=== PATIENT | female | born 1990 | race Caucasian/White ===

== ENCOUNTER 2019-11-18 13:44 | Emergency (ER) | payer SELFPAY ==
[2019-11-18] MEDS ORDERED: NORMAL SALINE 1000 ML 1,000 ML IV ONE (14:15)
[2019-11-18 15:16] VITALS: BP 96/63
[2019-11-18 17:41] LABS: ABSOLUTE BASOPHILS # (AUTO) 0.1 10^3/uL (0.0-0.2); ABSOLUTE EOSINOPHILS # (AUTO) 0.3 10^3/uL (0.0-0.6); ABSOLUTE LYMPHOCYTES (AUTO) 2.5 10^3/uL (0.5-4.7); ABSOLUTE MONOCYTES (AUTO) 0.5 10^3/uL (0.1-1.4); ABSOLUTE NEUT (AUTO) 6.6 10^3/uL (1.7-8.2); BASOPHILS % (AUTO) 0.9 % (0-2); EOSINOPHILS % (AUTO) 3.2 % (0-6); HEMATOCRIT 44.1 % (36.0-47.0); HEMOGLOBIN 14.8 g/dL (12.0-15.5); LYMPHOCYTES % (AUTO) 25.1 % (13-45); MEAN CORPUSCULAR HEMOGLOBIN 28.9 pg (27.0-33.4); MEAN CORPUSCULAR HGB CONC 33.6 g/dL (32.0-36.0); MEAN CORPUSCULAR VOLUME 86 fl (80-97); MONOCYTES % (AUTO) 4.9 % (3-13); PLATELET COUNT 257 10^3/uL (150-450); RED BLOOD COUNT 5.13 10^6/uL (3.72-5.28); RED CELL DISTRIBUTION WIDTH 14.6 % (11.5-14.0); SEGMENTED NEUTROPHILS % (AUTO) 65.9 % (42-78); TOTAL CELLS COUNTED % (AUTO) 100 %
--- NOTE | 2019-11-18 17:47 | ER Document Report ---
ED GI/ - General Chief Complaint: Nausea/Vomiting Stated Complaint: NAUSEA/VOMITING Time Seen by Provider: 11/18/19 15:34 Mode of Arrival: Ambulatory Information source: Patient Notes: This 29-year-old female presented emergency room today with nausea vomiting malaise over the last 48 hours. - HPI Patient complains to provider of: Vomiting Timing/Duration: Waxing and waning - Related Data Allergies/Adverse Reactions: No Known Allergies Allergy (Unverified 11/18/19 16:02) Past Medical History - General Information source: Patient - Social History Smoking Status: Current Every Day Smoker Frequency of alcohol use: None Drug Abuse: None Family History: None Patient has homicidal ideation: No Review of Systems - Review of Systems Constitutional: No symptoms reported EENT: No symptoms reported Cardiovascular: No symptoms reported Respiratory: No symptoms reported Gastrointestinal: Vomiting Genitourinary: No symptoms reported Female Genitourinary: No symptoms reported Musculoskeletal: No symptoms reported Skin: No symptoms reported Hematologic/Lymphatic: No symptoms reported Neurological/Psychological: No symptoms reported Physical Exam - Vital signs Vitals: Temp 98.5 F 11/18/19 15:00 Interpretation: Normal - General General appearance: Appears well, Alert - HEENT Head: Normocephalic, Atraumatic Eyes: Normal Pupils: PERRL - Respiratory Respiratory status: No respiratory distress Chest status: Nontender Breath sounds: Normal Chest palpation: Normal - Cardiovascular Rhythm: Regular Heart sounds: Normal auscultation Murmur: No - Abdominal Inspection: Normal Distension: No distension Bowel sounds: Normal Tenderness: Nontender Organomegaly: No organomegaly - Back Back: Normal, Nontender - Extremities General upper extremity: Normal inspection, Nontender, Normal color, Normal ROM, Normal temperature General lower extremity: Normal inspection, Nontender, Normal color, Normal ROM, Normal temperature, Normal weight bearing. No: Natalia's sign - Neurological Neuro grossly intact: Yes Cognition: Normal Orientation: AAOx4 Rain Coma Scale Eye Opening: Spontaneous [place] Coma Scale Verbal: Oriented Rain Coma Scale Motor: Obeys Commands [place] Coma Scale Total: 15 Speech: Normal Motor strength normal: LUE, RUE, LLE, RLE Sensory: Normal - Psychological Associated symptoms: Normal affect, Normal mood - Skin Skin Temperature: Warm Skin Moisture: Dry Skin Color: Normal Course - Re-evaluation Re-evalutation: 07/19/20 18:51 Patient resting comfortably in the room no noted abdominal pain bowel sounds normoactive no emesis here no diarrhea. - Vital Signs Vital signs: Temp Pulse Resp BP Pulse Ox 98.5 F 89 19 96/63 L 97 11/18/19 15:14 11/18/19 15:14 11/18/19 15:14 11/18/19 15:14 11/18/19 15:14 - Laboratory Result Diagrams: 11/18/19 17:33 11/18/19 17:33 Laboratory results interpreted by me: 11/18/19 11/18/19 17:33 17:33 RDW 14.6 H Sodium 136.8 L Potassium 3.4 L BUN 6 L Labs- All tests 24 hr 11/18/19 11/18/19 17:33 17:33 WBC 10.0 RBC 5.13 Hgb 14.8 Hct 44.1 MCV 86 MCH 28.9 MCHC 33.6 RDW 14.6 H Plt Count 257 Lymph % (Auto) 25.1 [place] % (Auto) 4.9 Eos % (Auto) 3.2 Baso % (Auto) 0.9 Absolute Neuts (auto) 6.6 Absolute Lymphs (auto) 2.5 Absolute Monos (auto) 0.5 Absolute Eos (auto) 0.3 Absolute Basos (auto) 0.1 Seg Neutrophils % 65.9 Sodium 136.8 L Potassium 3.4 L Chloride 104 Carbon Dioxide 25 Anion Gap 8 BUN 6 L Creatinine 0.52 Est GFR ( Amer) > 60 Est GFR (MDRD) Non-Af > 60 Glucose 87 Calcium 9.2 Total Bilirubin 0.6 Direct Bilirubin 0.1 Neonat Total Bilirubin Not Reportable Neonat Direct Bilirubin Not Reportable Neonat Indirect Bili Not Reportable AST 27 ALT 17 Alkaline Phosphatase 41 Total Protein 7.6 Albumin 4.3 Discharge - Discharge Clinical Impression: Viral illness Condition: Good Disposition: HOME, SELF-CARE Instructions: Fever ([facility]), Viral Syndrome ([facility]) Additional Instructions: To help with spread of COVID-19, everyone should: Clean your hands often, either with soap and water for 20 seconds or hand boat worker that contains at least 60% alcohol. Avoid close contact with people who are sick. Put distance between yourself and other people at least 6 feet. Cover your mouth and nose with a clean base cover when around others. Cover your cough or sneeze with the tissue then through the tissue in the trash. Clean and disinfect frequently touched objects and surfaces daily. CDC recommends that people wear a clock face coverings in public settings and when around people outside of their household, especially when other social dis tancing measures are difficult to maintain. Clock face coverings may help prevent people who have COVID-19 from spreading the virus to others. Specifically you have been tested however your results are not back yet he should self quarantine following all the appropriate protocols remaining isolated as much as possible. Follow-up with PMD in 3 to 4 days.
[2019-11-18 17:59] LABS: ALBUMIN 4.3 g/dL (3.5-5.0); ALKALINE PHOSPHATASE 41 U/L (38-126); ANION GAP 8 (5-19); ASPARTATE AMINO TRANSFERASE 27 U/L (14-36); BILIRUBIN,DIRECT 0.1 mg/dL (0.0-0.4); BILIRUBIN,TOTAL 0.6 mg/dL (0.2-1.3); BLOOD UREA NITROGEN 6 mg/dL (7-20); CALCIUM 9.2 mg/dL (8.4-10.2); CARBON DIOXIDE 25 mmol/L (22-30); CHLORIDE 104 mmol/L (98-107); GLUCOSE 87 mg/dL (75-110); POTASSIUM 3.4 mmol/L (3.6-5.0); TOTAL PROTEIN 7.6 g/dL (6.3-8.2)
[2019-11-18 19:09] LABS: APPEARANCE,URINE CLOUDY; BILIRUBIN,URINE SMALL (NEGATIVE); COLOR,URINE AMBER; GLUCOSE, URINE NEGATIVE (NEGATIVE); KETONES,URINE 80 mg/dL (NEGATIVE); LEUKOCYTE ESTERASE,URINE MODERATE (NEGATIVE); NITRITE,URINE NEGATIVE (NEGATIVE); PROTEIN,URINE 30 mg/dL (NEGATIVE); URINE SPECIFIC GRAVITY 1.027
== END 2019-11-18 19:23 | disposition home or self-care (01) ==
LOC: ER 13:44
DX: B34.9 Viral infection, unspecified (principal); R11.2 Nausea with vomiting, unspecified; R53.81 Other malaise; F17.200 Nicotine dependence, unspecified, uncomplicated; Z20.828 Contact with and (suspected) exposure to other viral communicable diseases
CPT/HCPCS: 99283; 96360; 36415; 85025; 87635; 80053; 81001; J7030; C9803

== ENCOUNTER 2019-12-19 15:12 | Emergency (ER) | payer SELFPAY ==
[2019-12-19 15:46] VITALS: BP 92/54
--- NOTE | 2019-12-19 17:36 | ER Document Report ---
ED Medical Screen (RME) - General Chief Complaint: Arm Pain Stated Complaint: ARM PAIN Time Seen by Provider: 12/19/19 17:29 Mode of Arrival: Ambulatory Information source: Patient Notes: HPI; 29-year-old female presents to the emergency room complaining of bilateral arm swelling and numbness for the past 2 weeks. States she is waking up in the middle of the night and noticing that her arms are numb and swollen. Persist throughout the day. Does have a history of degenerative disc disease of the neck. She denies any trauma or injury to her neck. Also complaining of intermittent right-sided chest pain for the past week. Describes it as sharp and aching. Has been taking a daily aspirin and Tylenol without relief. Did not take any aspirin today. Denies any nausea, vomiting, no shortness of breath, no difficulty breathing. PE: Alert and oriented x3. Lungs: Clear to auscultation without rales, rhonchi, wheezes. Heart: Regular rate rhythm without murmurs, rubs, gallops. Negative fast exam. Taxation Accountant strength equal and adequate bilaterally. Full sensation to bilateral upper extremities. Vascular intact. I have greeted and performed a rapid initial assessment of this patient. A comprehensive ED assessment and evaluation of the patient, analysis of test results and completion of the medical decision making process will be conducted by additional ED providers. I have specifically instructed the patient or family members with the patient to immediately return to any nursing staff should anything change in the patient's condition or with their chief complaint. TRAVEL OUTSIDE OF THE [place] IN LAST 30 DAYS: No - Related Data Allergies/Adverse Reactions: No Known Allergies Allergy (Verified 12/19/19 17:28) Physical Exam - Vital signs Vitals: Temp Pulse Resp BP Pulse Ox 98.1 F 70 17 92/54 L 95 12/19/19 15:44 12/19/19 15:44 12/19/19 15:44 12/19/19 15:44 12/19/19 15:44 Course - Vital Signs Vital signs: Temp Pulse Resp BP Pulse Ox 98.1 F 70 17 92/54 L 95 12/19/19 15:44 12/19/19 15:44 12/19/19 15:44 12/19/19 15:44 12/19/19 15:44
--- NOTE | 2019-12-19 18:13 | RADIOLOGY REPORT (SQ) ---
EXAM DESCRIPTION: CHEST 2 VIEWS IMAGES COMPLETED DATE/TIME: 12/19/2019 6:00 pm REASON FOR STUDY: chest pain COMPARISON: None. EXAM PARAMETERS: NUMBER OF VIEWS: two views TECHNIQUE: Digital Frontal and Lateral radiographic views of the chest acquired. RADIATION DOSE: NA LIMITATIONS: none FINDINGS: LUNGS AND PLEURA: No opacities, masses or pneumothorax. No pleural effusion. MEDIASTINUM AND HILAR STRUCTURES: No masses or contour abnormalities. HEART AND VASCULAR STRUCTURES: Heart normal size. No evidence for failure. BONES: No acute findings. HARDWARE: None in the chest. OTHER: No other significant finding. IMPRESSION: NO ACUTE RADIOGRAPHIC FINDING IN THE CHEST. TECHNICAL DOCUMENTATION: JOB ID: [id number] 2010 [employer]- All Rights Reserved Reading location - IP/workstation name: [email or web address]
--- NOTE | 2019-12-19 18:32 | RADIOLOGY REPORT (SQ) ---
EXAM DESCRIPTION: CT CERVICAL SPINE WITHOUT IMAGES COMPLETED DATE/TIME: 12/19/2019 6:02 pm REASON FOR STUDY: Paresthesia COMPARISON: None. TECHNIQUE: Axial images acquired through the cervical spine without intravenous contrast. Images re viewed with lung, soft tissue and bone windows. Reconstructed coronal and sagittal MPR images review ed. Images stored on PACS. All CT scanners at this facility use dose modulation, iterative reconstruction, and/or weight based d osing when appropriate to reduce radiation dose to as low as reasonably achievable (ALARA). [facility]: Dose Right [facility]: CareDose [facility]: Dose Right [facility]: Teradose 4D [facility]: Smart [employer] RADIATION DOSE: CT Rad equipment meets quality standard of care and radiation dose reduction techniq ues were employed. CTDIvol: 19.3 mGy. DLP: 382 mGy-cm. mGy. LIMITATIONS: None. FINDINGS: ALIGNMENT: Anatomic. MINERALIZATION: Normal. VERTEBRAL BODIES: No fractures or dislocation. DISCS: No significant disc disease. FACETS, LATERAL MASSES, POSTERIOR ELEMENTS: No fractures. No dislocation. No acute findings. HARDWARE: None in the spine. VISUALIZED RIBS: No fractures. LUNG APICES AND SOFT TISSUES: No significant or acute findings. OTHER: No other significant finding. IMPRESSION: NO ACUTE OR SIGNIFICANT FINDINGS IN THE CERVICAL SPINE. TECHNICAL DOCUMENTATION: JOB ID: [id number] Quality ID # [id number]: Final reports with documentation of one or more dose reduction techniques (e.g., Au tomated exposure control, adjustment of the mA and/or kV according to patient size, use of iterative reconstruction technique) 2010 [employer]- All Rights Reserved Reading location - IP/workstation name: [email or web address]
[2019-12-19 18:51] LABS: ABSOLUTE EOSINOPHILS # (AUTO) 0.6 10^3/uL (0.0-0.6); ABSOLUTE LYMPHOCYTES (AUTO) 2.7 10^3/uL (0.5-4.7); ABSOLUTE MONOCYTES (AUTO) 0.4 10^3/uL (0.1-1.4); ABSOLUTE NEUT (AUTO) 3.3 10^3/uL (1.7-8.2); BASOPHILS % (AUTO) 0.4 % (0-2); EOSINOPHILS % (AUTO) 8.3 % (0-6); HEMATOCRIT 40.4 % (36.0-47.0); HEMOGLOBIN 13.4 g/dL (12.0-15.5); LYMPHOCYTES % (AUTO) 38.6 % (13-45); MEAN CORPUSCULAR HEMOGLOBIN 28.8 pg (27.0-33.4); MEAN CORPUSCULAR HGB CONC 33.3 g/dL (32.0-36.0); MEAN CORPUSCULAR VOLUME 87 fl (80-97); MONOCYTES % (AUTO) 5.3 % (3-13); PLATELET COUNT 270 10^3/uL (150-450); RED BLOOD COUNT 4.67 10^6/uL (3.72-5.28); RED CELL DISTRIBUTION WIDTH 15.5 % (11.5-14.0); SEGMENTED NEUTROPHILS % (AUTO) 47.4 % (42-78); TOTAL CELLS COUNTED % (AUTO) 100 %; WHITE BLOOD COUNT 6.9 10^3/uL (4.0-10.5)
[2019-12-19 19:07] LABS: ALBUMIN 4.2 g/dL (3.5-5.0); ALKALINE PHOSPHATASE 34 U/L (38-126); ANION GAP 6 (5-19); ASPARTATE AMINO TRANSFERASE 22 U/L (14-36); BILIRUBIN,TOTAL 0.4 mg/dL (0.2-1.3); BLOOD UREA NITROGEN 11 mg/dL (7-20); CALCIUM 9.2 mg/dL (8.4-10.2); CARBON DIOXIDE 29 mmol/L (22-30); CHLORIDE 104 mmol/L (98-107); CREATINE KINASE 56 U/L (30-135); GLUCOSE 94 mg/dL (75-110); POTASSIUM 4.1 mmol/L (3.6-5.0); TOTAL PROTEIN 7.1 g/dL (6.3-8.2)
[2019-12-19 19:21] LABS: TROPONIN I < 0.012 ng/mL
--- NOTE | 2019-12-19 19:54 | RADIOLOGY REPORT (SQ) ---
EXAM DESCRIPTION: CT CHEST WITHOUT IMAGES COMPLETED DATE/TIME: 12/19/2019 7:27 pm REASON FOR STUDY: pain/cough COMPARISON: None. TECHNIQUE: CT scan performed of the chest without intravenous contrast. Images reviewed with lung, soft tissue and bone windows. Reconstructed coronal and sagittal MPR images reviewed. All images st ored on PACS. All CT scanners at this facility use dose modulation, iterative reconstruction, and/or weight based d osing when appropriate to reduce radiation dose to as low as reasonably achievable (ALARA). [facility]: Dose Right [facility]: CareDose [facility]: Dose Right [facility]: Teradose 4D [facility]: Smart [employer] RADIATION DOSE: CT Rad equipment meets quality standard of care and radiation dose reduction techniq ues were employed. CTDIvol: 6.8 mGy. DLP: 242 mGy-cm. mGy. LIMITATIONS: No technical limitations. FINDINGS: LUNGS AND PLEURA: No masses, infiltrates, or pneumothorax. No pleural effusions or pleura l calcifications. HILAR AND MEDIASTINAL STRUCTURES: No identified masses or abnormal nodes. No obvious aneurysm. HEART AND VASCULAR STRUCTURES: No aneurysm. No pericardial effusion. UPPER ABDOMEN: No significant findings. Limited exam. THYROID AND OTHER SOFT TISSUES: No masses. No adenopathy. BONES: No significant finding. HARDWARE: None in the chest. OTHER: No other significant findings. IMPRESSION: NO SIGNIFICANT FINDING ON NON-CONTRASTED CHEST CT. TECHNICAL DOCUMENTATION: JOB ID: [id number] Quality ID # [id number]: Final reports with documentation of one or more dose reduction techniques (e.g., Au tomated exposure control, adjustment of the mA and/or kV according to patient size, use of iterative reconstruction technique) 2010 [employer]- All Rights Reserved Reading location - IP/workstation name: [email or web address]
--- NOTE | 2019-12-19 20:34 | ER Document Report ---
ED Extremity Problem, Upper - General Chief Complaint: Swelling Stated Complaint: ARM PAIN Time Seen by Provider: 12/19/19 17:29 Primary Care Provider: [facility] [Provider Group] - Follow up in 3-5 days MARYCHUY BUTT MD [COMMUNITY BASED STAFF] - Follow up in 3-5 days Mode of Arrival: Ambulatory Information source: Patient TRAVEL OUTSIDE OF THE [place] IN LAST 30 DAYS: No - HPI Notes: Patient states she has bilateral upper extremity swelling and pain and then this is been going on for 2 weeks. She states it only happens when she sleeps and that it makes it hard for her to sleep. It is worse with sleeping and better when she is not sleeping. The pain radiates up both arms. She has had no significant shortness of breath. Some upper chest pain. No known trauma or falls. No rashes. She states she gets both [id number]-[id number] in both arms as well as sharp pain in both arms. She states the pain is severe. She denies any current symptoms. No nausea vomiting diarrhea. Of note the nursing note that states patient was placed in room 33 is an incorrect note and everything about that nursing note must of been meant for another patient because those are none of the symptoms this patient had either. - Related Data Allergies/Adverse Reactions: No Known Allergies Allergy (Verified 12/19/19 17:28) Past Medical History - General Information source: Patient - Social History Smoking Status: Current Every Day Smoker Chew tobacco use (# tins/day): No Frequency of alcohol use: None Drug Abuse: None Family History: None Patient has homicidal ideation: No Review of Systems - Review of Systems Constitutional: denies: Chills, Fever Respiratory: denies: Cough, Short of breath Gastrointestinal: denies: Diarrhea, Vomiting -: Yes All other systems reviewed and negative Physical Exam - Vital signs Vitals: Temp Pulse Resp BP Pulse Ox 98.1 F 70 17 92/54 L 95 12/19/19 15:44 12/19/19 15:44 12/19/19 15:44 12/19/19 15:44 12/19/19 15:44 Interpretation: Normal, Other - Blood pressure is normal although borderline low. However patient had a very similar blood pressure 1 month ago. Patient is not lightheaded or dizzy. Patient is not tachycardic. This appears to be a normal blood pressure for this patient. - General General appearance: Appears well, Alert - HEENT Head: Normocephalic, Atraumatic Eyes: Normal Pupils: PERRL - Respiratory Respiratory status: No respiratory distress Chest status: Nontender Breath sounds: Normal Chest palpation: Normal - Cardiovascular Rhythm: Regular Heart sounds: Normal auscultation Murmur: No - Abdominal Inspection: Normal Distension: No distension Bowel sounds: Normal Tenderness: Nontender Organomegaly: No organomegaly - Back Back: Normal, Nontender - Extremities General upper extremity: Normal inspection, Nontender, Normal color, Normal ROM, Normal temperature, Other - Patient's bilateral upper extremity exam is unremarkable. She has normal radial pulses bilaterally she has good color and temperature. She has no evidence of swelling of either upper extremity. General lower extremity: Normal inspection, Nontender, Normal color, Normal ROM, Normal temperature, Normal weight bearing. No: Natalia's sign - Neurological Neuro grossly intact: Yes Cognition: Normal Orientation: AAOx4 Rain Coma Scale Eye Opening: Spontaneous [place] Coma Scale Verbal: Oriented [place] Coma Scale Motor: Obeys Commands Rain Coma Scale Total: 15 Speech: Normal Motor strength normal: LUE, RUE, LLE, RLE Sensory: Normal - Psychological Associated symptoms: Normal affect, Normal mood - Skin Skin Temperature: Warm Skin Moisture: Dry Skin Color: Normal Course - Vital Signs Vital signs: Temp Pulse Resp BP Pulse Ox 98.1 F 70 17 92/54 L 95 12/19/19 15:44 12/19/19 15:44 12/19/19 15:44 12/19/19 15:44 12/19/19 15:44 - Laboratory Result Diagrams: 12/19/19 18:28 12/19/19 18:28 Laboratory results interpreted by me: 12/19/19 12/19/19 18:28 18:28 RDW 15.5 H Eos % (Auto) 8.3 H Alkaline Phosphatase 34 L - Diagnostic Test Radiology reviewed: Image reviewed, Reports reviewed - EKG Interpretation by Me EKG shows normal: Sinus rhythm Rate: Normal - 63 Rhythm: NSR [place]/QRS: Left axis deviation Discharge - Discharge Clinical Impression: Bilateral arm pain Condition: Stable Disposition: HOME, SELF-CARE Instructions: Arm Pain, Nonspecific ([facility]) Additional Instructions: Please call Dr. Fermin, the [facility] or a primary care doctor as soon as possible to arrange follow-up Prescriptions: Tramadol HCl [Ultram] 50 mg PO Q6 PRN 3 Days #12 tablet PRN Reason: Forms: Return to Work Referrals: [facility] [Provider Group] - Follow up in 3-5 days MARYCHUY BUTT MD [COMMUNITY BASED STAFF] - Follow up in 3-5 days
[2019-12-19] MEDS ORDERED: HYDROCODONE/ACETAMINOPHEN 5-325 MG TABLET PO ONE (20:43)
--- NOTE | 2019-12-20 09:55 | EKG REPORT ---
SEVERITY:- OTHERWISE NORMAL ECG - SINUS ARRHYTHMIA, RATE 55-71 BORDERLINE LEFT AXIS DEVIATION : Confirmed by: Landon Julien 20-Dec-2019 09:54:10
== END 2019-12-19 21:30 | disposition home or self-care (01) ==
LOC: ER 15:12
DX: M79.601 Pain in right arm (principal); M79.602 Pain in left arm; M79.89 Other specified soft tissue disorders; R07.9 Chest pain, unspecified; F17.200 Nicotine dependence, unspecified, uncomplicated
CPT/HCPCS: 36415; 71046; 71250; 72125; 80053; 82550; 82553; 84484; 84703; 85025; 93005; 93010; 99285

== ENCOUNTER 2020-01-02 18:23 | Emergency (ER) | payer SELFPAY ==
--- NOTE | 2020-01-02 19:30 | ER Document Report ---
ED General <TI FELIX - Last Filed: 01/03/20 09:46> - General Mode of Arrival: Ambulatory Information source: Patient Cannot obtain history due to: Uncooperative TRAVEL OUTSIDE OF THE [place] IN LAST 30 DAYS: No - HPI Onset: Last week Onset/Duration: Persistent Quality of pain: No pain Severity: None Associated symptoms: Slow to respond. denies: Chest pain, Diarrhea, Headache, Nausea, Vomiting Exacerbated by: Other - Life situation Relieved by: Denies Similar symptoms previously: Yes Recently seen / treated by doctor: No <DARLINE GIBBONS - Last Filed: 01/03/20 10:16> - General Chief Complaint: Psych Problem Stated Complaint: PSYCH Notes: Patient is a 29-year-old female presenting to the emergency department with suicidal ideations. Patient states is been ongoing for the past 3 days. Patient states that it is secondary to life stressors. Patient states that she has been hospitalized in the past for similar complaint at [place]. When asked the patient is very hesitant to answer but finally answers that she does not have a specific plan for suicide. Patient denies drugs or alcohol abuse. Patient denies nausea vomiting diarrhea fevers chills cough or cold type symptoms. (DARLINE GIBBONS) - Related Data Allergies/Adverse Reactions: No Known Allergies Allergy (Verified 12/19/19 17:28) Past Medical History - General Information source: Patient - Social History Smoking Status: Current Every Day Smoker Cigarette use (# per day): Yes Chew tobacco use (# tins/day): No Smoking Education Provided: Yes Frequency of alcohol use: Rare Drug Abuse: None, Other Family History: None Patient has suicidal ideation: Yes Patient has homicidal ideation: No <DARLINE GIBBONS - Last Filed: 01/03/20 10:16> Review of Systems <DARLINE GIBBONS - Last Filed: 01/03/20 10:16> - Review of Systems Notes: REVIEW OF SYSTEMS: CONSTITUTIONAL : Denies fever, chills, or sweats. Denies recent illness. EENT: Denies eye, ear, throat, or mouth pain or symptoms. Denies nasal or sinus congestion. CARDIOVASCULAR: Denies chest pain. RESPIRATORY: Denies cough, cold, or chest congestion. Denies shortness of breath, difficulty breathing, or wheezing. GASTROINTESTINAL: Denies abdominal pain. Denies nausea, vomiting, or diarrhea. Denies constipation. GENITOURINARY: Denies difficulty urinating, painful urination, burning, frequency, or blood in urine. MUSCULOSKELETAL: Denies neck or back pain or joint pain or swelling. SKIN: Denies rash or skin lesions. HEMATOLOGIC : Denies easy bruising or bleeding. NEUROLOGICAL: Denies altered mental status or loss of consciousness. Denies headache. Denies weakness or paralysis or loss of use of either side. Denies problems with gait or speech. Denies sensory or motor loss. PSYCHIATRIC: Per HPI 10 Systems are negative unless otherwise specified above (DARLINE GIBBONS) Physical Exam <DARLINE GIBBONS - Last Filed: 01/03/20 10:16> - Vital signs Vitals: Temp Pulse Resp BP Pulse Ox 98.3 F 68 18 110/70 99 01/03/20 04:55 01/03/20 04:55 01/03/20 04:55 01/03/20 04:55 01/03/20 04:55 - Notes Notes: PHYSICAL EXAMINATION: GENERAL: Patient is a disheveled 29-year-old female presenting to the emergency department with suicidal ideations HEAD: Atraumatic, normocephalic. EYES: Pupils equal round and reactive to light, extraocular movements intact, sclera anicteric, conjunctiva are normal. ENT: nares patent, oropharynx clear without exudates. Moist mucous membranes. NECK: Normal range of motion, supple without lymphadenopathy, no appreciable JVD LUNGS: Lungs clear to auscultation bilaterally and equal. No wheezes rales or rhonchi. HEART: Regular rate and rhythm without murmurs ABDOMEN: Soft, nontender, normal bowel sounds. No guarding, no rebound. No masses appreciated. EXTREMITIES: Active full range of motion, no pitting or edema. No cyanosis. 2+ pulses x4 NEUROLOGICAL: No focal neurological deficits. Moves all extremities spo ntaneously and on command. Psychiatric: Patient does report suicidal ideations without specific plan. Patient refuses to make eye contact and is very russell with her answers. SKIN: Warm, Dry, and intact. Normal turgor, no rashes or lesions noted. (DARLINE GIBBONS) Course - Laboratory Result Diagrams: 01/02/20 21:08 01/02/20 21:08 <TI FELIX - Last Filed: 01/03/20 09:46> - Laboratory Result Diagrams: 01/02/20 21:08 01/02/20 21:08 <DARLINE GIBBONS - Last Filed: 01/03/20 10:16> - Re-evaluation Re-evalutation: 01/03/20 09:22 Patient is resting quietly in the room at this time in no distress. I did review the patient's lab work and history. Suicidal ideation without plan. Awaiting urinalysis and urine drug screen. Pending psychiatric evaluation 01/03/20 09:41 Patient has informed the nurse that she normally takes Suboxone daily we do not have that medication in the ER for the patient. Discussed with attending. Will give clonidine, Zofran for withdrawal symptoms pending psychiatric evaluation 01/03/20 09:46 Nursing is informed that the patient systolic blood pressure is 88/46. Will give IV Zofran, liter of normal saline to hold clonidine (TI FELIX) 01/03/20 10:15 Patient was medically cleared for further evaluation treatment and disposition decision as deemed necessary by mental health services. (DARLINE GIBBONS) - Vital Signs Vital signs: Temp Pulse Resp BP Pulse Ox 98.4 F 63 18 89/42 L 97 01/03/20 09:40 01/03/20 09:40 01/03/20 09:40 01/03/20 09:40 01/03/20 09:40 - Laboratory Laboratory results interpreted by me: 01/02/20 01/02/20 21:08 21:08 RDW 15.3 H Chloride 109 H Alkaline Phosphatase 33 L Total Protein 6.1 L Salicylates < 1.0 L Acetaminophen < 10 L Discharge <TI FELIX - Last Filed: 01/03/20 09:46> <DARLINE GIBBONS - Last Filed: 01/03/20 10:16> - Discharge Clinical Impression: Suicidal ideations Condition: Stable Disposition: PSYCH HOSP/UNIT
[2020-01-02 21:33] LABS: ALBUMIN 3.5 g/dL (3.5-5.0); ALKALINE PHOSPHATASE 33 U/L (38-126); ASPARTATE AMINO TRANSFERASE 16 U/L (14-36); BILIRUBIN,DIRECT 0.3 mg/dL (0.0-0.4); BILIRUBIN,TOTAL 0.3 mg/dL (0.2-1.3); BLOOD UREA NITROGEN 10 mg/dL (7-20); CALCIUM 8.7 mg/dL (8.4-10.2); GLUCOSE 87 mg/dL (75-110); TOTAL PROTEIN 6.1 g/dL (6.3-8.2)
[2020-01-02 21:38] LABS: ACETAMINOPHEN < 10 ug/mL (10-30); ALCOHOL < 10 mg/dL (NONE DETECTED); SALICYLATE < 1.0 mg/dL (2.0-20.0)
[2020-01-02 21:42] LABS: ABSOLUTE EOSINOPHILS # (AUTO) 0.2 10^3/uL (0.0-0.6); ABSOLUTE LYMPHOCYTES (AUTO) 2.9 10^3/uL (0.5-4.7); ABSOLUTE MONOCYTES (AUTO) 0.4 10^3/uL (0.1-1.4); ABSOLUTE NEUT (AUTO) 3.5 10^3/uL (1.7-8.2); BASOPHILS % (AUTO) 0.6 % (0-2); EOSINOPHILS % (AUTO) 3.3 % (0-6); HEMATOCRIT 38.7 % (36.0-47.0); HEMOGLOBIN 12.7 g/dL (12.0-15.5); LYMPHOCYTES % (AUTO) 41.1 % (13-45); MEAN CORPUSCULAR HEMOGLOBIN 28.4 pg (27.0-33.4); MEAN CORPUSCULAR HGB CONC 32.9 g/dL (32.0-36.0); MEAN CORPUSCULAR VOLUME 87 fl (80-97); MONOCYTES % (AUTO) 5.7 % (3-13); PLATELET COUNT 231 10^3/uL (150-450); RED BLOOD COUNT 4.47 10^6/uL (3.72-5.28); RED CELL DISTRIBUTION WIDTH 15.3 % (11.5-14.0); SEGMENTED NEUTROPHILS % (AUTO) 49.3 % (42-78); TOTAL CELLS COUNTED % (AUTO) 100 %; WHITE BLOOD COUNT 7.1 10^3/uL (4.0-10.5)
[2020-01-02 21:49] LABS: ANION GAP 6 (5-19); CARBON DIOXIDE 26 mmol/L (22-30); CHLORIDE 109 mmol/L (98-107)
[2020-01-03] MEDS ORDERED: CLONIDINE HCL 0.1 MG TABLET PO ONE (09:41)
[2020-01-03] MEDS ORDERED: ONDANSETRON 4 MG TAB.RAPDIS PO ONE (09:41)
[2020-01-03] MEDS ORDERED: ONDANSETRON HCL INJ/PF 4 MG/2 ML SDV IV ONE (09:45)
[2020-01-03] MEDS ORDERED: NORMAL SALINE 1000 ML 1,000 ML IV ONE (09:45)
[2020-01-03 11:08] LABS: APPEARANCE,URINE SLIGHTLY-CLOUDY; BILIRUBIN,URINE NEGATIVE (NEGATIVE); COLOR,URINE AMBER; GLUCOSE, URINE NEGATIVE (NEGATIVE); KETONES,URINE NEGATIVE (NEGATIVE); LEUKOCYTE ESTERASE,URINE TRACE (NEGATIVE); NITRITE,URINE NEGATIVE (NEGATIVE); PROTEIN,URINE 30 mg/dL (NEGATIVE); URINE SPECIFIC GRAVITY 1.032
[2020-01-03 11:17] LABS: URINE AMPHETAMINES SCREEN NEGATIVE; URINE BARBITURATES SCREEN NEGATIVE; URINE BENZODIAZEPINES SCREEN NEGATIVE; URINE COCAINE SCREEN NEGATIVE; URINE METHADONE SCREEN NEGATIVE; URINE PHENCYCLIDINE SCREEN NEGATIVE
[2020-01-03 11:20] LABS: URINE MARIJUANA (THC) SCREEN UNCONFIRMED POSITIVE
[2020-01-03] MEDS ORDERED: OLANZAPINE 2.5 MG TABLET PO ONE (14:28)
[2020-01-03 15:02] VITALS: BP 106/68
--- NOTE | 2020-01-04 13:06 | PSYCHOLOGICAL NOTE ---
Psych Note - Psych Note Date seen by psych provider: 01/03/20 Time seen by psych provider: 11:38 - Evaluation from [id number]. Contact with [facility] at 2312. Psych Note: Patient is a 29 year old female who presented to the Emergency Department last evening via EMS for passive suicidal ideation (medical documentation noted no plan or intent) the past 3 days, being on Suboxone maintenance (pharmacy linked to [facility] verifies this) and seeking outpatient treatment. Patient denied current suicidal ideation and stated the thoughts she had over the past 3 days were passive related to not wanting to be alive, she denied any plans/intent/action taken. She identified she does online Suboxone maintenance through [facility] since 09/28/2019 for being prescribed narcotic pain medication and getting addicted, denied doing to other forms of opiate use. She stated she was supposed to have an appointment with [facility] today but did not recall the time. She identified with COVID-19 it has taken a long time to be seen by [facility]. Patient noted psychosocial stress: she herself was in [facility] last year, her children were taken from her and are in the care of her 's parents in [place], her just got incarcerated and will not be released until March 2020, she did not want to be alone so she moved her Uncle into her place, her landlord found out and evicted her giving 19 day notice (has 4 days left), and Uncle up and left while she was sleeping. Patient denied being on medications currently and commented "I need to be, I need to go somewhere and get my medications right." She noted she had been on medications in the past and mentioned "Celexa, Klonopin, lots of other stuff." Patient admitted to previous mental health hospitalizations the last one being awhile ago. She reported diagnoses of Bipolar, Anxiety and Depression. Patient reported "I have not had my Suboxone dosing and I feel sick." Patient was alert and oriented to self, person, place, time and situation. Mood was depressed with flat affect at first then irritable with congruent affect (likely due to feeling sick as patient reported since she had not had her dosing of Suboxone). She denied current suicidal and homicidal ideation and admitted to passive thoughts of suicide the past 3 days. Patient did not appear to be responding to internal stimuli as evidenced by fair eye contact and answering questions appropriately when addressed. Thought processes were linear and organized. Conversational speech was within normal limits for rate, tone and prosody. Intellectual abilities are estimated to be average. Insight, judgment and impulse control were fair as evidenced by saying she wants detoxification and does not want to be on Suboxone (being open to walk in to [facility]). Attending Nurse noted patient has an ankle monitor and provided nurse with surveillance dual rate officer contact information to inform them where she is. This demonstrated future/forward/goal oriented thinking. Attending Nurse stated she got voice mail and left e general message with patient name and date she was admitted to Emergency Department. At 1422 called [facility]. Spoke to Darlin. She confirmed patient was supposed to have appointment this morning. She was made aware patient was in the Emergency Department for behavioral health. She stated patient could call to reschedule appointment but she needs to have discontinued any other Suboxone treatment before they will make an appointment. Clinical Presentation: Passive Suicidal ideation- no plan/intent/action Multiple psychosocial stresses Desire for getting off Suboxon and going to detoxification program Medication recommendation made by the psychiatric medication provider Dr. Loy LARSON., includes: Add Zyprexa 2.5MG twice a day for mood stabilization/impulse control (one time dose now and provide prescription) Impression/Plan: Patient is cleared from acute psychiatric services. She denied current suicidal and homicidal ideation, admitted to passive thoughts the past 3 days, identified multiple psychosocial stresses, had the Attending Nurse call her research interviewer to make them aware of her location (demonstrated future/forward/gal oriented thinking), noted having to wait to get into [facility] due to COVID-19 and appointment was this morning so she missed it, and finally when discussing plan of care for discharge expressing desire for detoxification (said she did not want to be on Suboxone anymore, again demonstrated future/forward/goal oriented thinking and hope). Provided patient with the outpatient mental health resource sheet which documented calling [facility] back to reschedule appointment/must be discharged from other Suboxone treatment, highlighted [facility] as alternative Suboxone provider and highlighted both local mobile crisis numbers. When patient expressed interest in detoxification provided her with the substance abuse resource sheet which hi ghlighted [facility] and noted local mobile crisis can assist with placement to voluntary detoxification (listed all detox facilities they would try to get her a bed at). Patient was interested in doing walk in to [facility] and this clinician directed patient where to go to get to [facility] by walking her out the Emergency Department lobby and showing her where to go. Informed her not to be discouraged if [facility] said they feel they cannot help her and directed her to use mobile crisis if that were to happen. Consulted with Dr. Red regarding the management and care of patient. ED Physician in agreement with recommendations.
== END 2020-01-03 15:02 | disposition home or self-care (01) ==
LOC: ER 18:23
DX: R45.851 Suicidal ideations (principal); F31.9 Bipolar disorder, unspecified; F17.210 Nicotine dependence, cigarettes, uncomplicated; F11.20 Opioid dependence, uncomplicated; Z79.899 Other long term (current) drug therapy; Z63.79 Other stressful life events affecting family and household
CPT/HCPCS: 36415; 80053; 80307; 81001; 81025; 85025; 99283